=== PATIENT | male | born 1965 | race Caucasian/White ===

== ENCOUNTER 2017-02-04 15:29 | Inpatient (IN) ==
[2017-02-04] MEDS ORDERED: MORPHINE 2 MG/1 ML SYRINGE IV STA (16:47)
[2017-02-04] MEDS ORDERED: SODIUM CHLORIDE 0.9% 1,000 ML IV STA (16:47)
[2017-02-04] MEDS ORDERED: ONDANSETRON 4 MG/2 ML VIAL IV STA (16:48)
[2017-02-04] MEDS ORDERED: ONDANSETRON 4 MG/2 ML VIAL ONE (17:27)
[2017-02-04] MEDS ORDERED: MORPHINE 2 MG/1 ML SYRINGE ONE (17:27)
[2017-02-04 17:35] LABS: Basophils # 0.1 10*3/uL (0.0-0.2); Basophils % 0.4 % (0.0-0.8); Eosinophils # 0.6 10*3/uL (0.0-0.87); Eosinophils % 3.1 % (0.00-10.9); Hematocrit 36.3 VOL% (42.0-52.0); Hemoglobin 12.6 GM/DL (14.0-18.0); Immature Granulocytes % 0.7 %; Immature Granulocytes Absolute 0.13 #; Lymphocytes # 1.6 10*3/uL (1.4-4.0); Lymphocytes % 8.3 % (21.2-54.2); Mean Corpuscular HGB Conc 34.7 GM/DL (32-36); Mean Corpuscular Hemoglobin 32 PG (27-34); Mean Corpuscular Volume 91.4 FL (87-102); Mean Platelet Volume 9.8 FL (9.6-12.0); Monocytes # 1.3 10*3/uL (0.11-0.8); Monocytes % 6.6 % (1.7-12.7); Neutrophils # 15.5 10*3/uL (1.4-7.4); Neutrophils % 80.9 % (38.7-73.9); Platelet Count 240 T/CUMM (130-400); Red Blood Count 3.97 MC/CUMM (3.8-5.5); Red Cell Distribution Width 12.7 % (9.3-17.3); White Blood Count 19.1 T/CUMM (4-12)
[2017-02-04] MEDS ORDERED: diphenhydrAMINE 50 MG/1 ML VIAL IV PRN (17:50)
[2017-02-04] MEDS ORDERED: ONDANSETRON 4 MG/2 ML VIAL IV PRN ×2 (17:50→18:01)
[2017-02-04] MEDS ORDERED: ACETAMINOPHEN 500 MG TABLET PO PRN (17:50)
[2017-02-04] MEDS ORDERED: KETOROLAC 15 MG/1 ML VIAL IV PRN (17:50)
[2017-02-04 17:52] LABS: Calcium 8.7 MG/DL (8.5-10.1); Osmolality,Calculated 272.8 MOS/KG (273-304); Potassium 4.1 MMOL/L (3.5-5.1)
[2017-02-04] MEDS ORDERED: ACETAMINOPHEN 325 MG TABLET PO PRN (18:01)
[2017-02-04] MEDS: LACTATED RINGERS 1,000 ML IV SCH (21:10)
[2017-02-04] MEDS: HYDROmorphone PCA 30 MG/30 ML SYRINGE IV SCH (21:11)
[2017-02-04] MEDS: VANCOMYCIN INJ 1,250 MG in SODIUM CHLORIDE 0.9% 250 ML IV SCH (21:13)
[2017-02-05] MEDS: PIPERACILLIN/TAZOBACTAM 3,375 MG in SODIUM CHLORIDE 0.9% 100 ML IV SCH ×3 (00:26→15:16)
[2017-02-05] MEDS: VANCOMYCIN INJ 1,250 MG in SODIUM CHLORIDE 0.9% 250 ML IV SCH ×2 (07:45→13:01)
[2017-02-05] MEDS ORDERED: LIDOCAINE 1%/EPI INJ 20 ML VIAL ONE (07:53)
[2017-02-05] MEDS ORDERED: PROPOFOL 200 MG/20 ML VIAL IV ONE (08:54)
[2017-02-05] MEDS ORDERED: SEVOFLURANE 1 UNIT/15 MINUTE INH ONE (08:54)
[2017-02-05] MEDS ORDERED: MIDAZOLAM 2 MG/2 ML VIAL ONE (08:54)
[2017-02-05] MEDS ORDERED: fentaNYL 100 MCG/2 ML VIAL ONE (08:55)
[2017-02-05] MEDS ORDERED: DEXAMETHASONE 10 MG/1 ML VIAL ONE (08:55)
[2017-02-05] MEDS ORDERED: ONDANSETRON 4 MG/2 ML VIAL ONE ×2 (08:55→08:57)
[2017-02-05] MEDS ORDERED: HYDROmorphone 2 MG/1 ML VIAL ONE (08:57)
[2017-02-05] MEDS: HYDROmorphone 2 MG/1 ML VIAL IV PRN ×2 (09:00→09:05)
[2017-02-05] MEDS: PANTOPRAZOLE 40 MG TABLET PO SCH (09:00)
[2017-02-05] MEDS ORDERED: ONDANSETRON 4 MG/2 ML VIAL IV PRN (09:01)
[2017-02-05] MEDS: SODIUM HYPOCHLORITE 0.25% IRRIG 473 ML BOTTLE TOP SCH (17:09)
[2017-02-05] MEDS: LACTATED RINGERS 1,000 ML IV SCH (18:01)
[2017-02-05] MEDS: HYDROmorphone PCA 30 MG/30 ML SYRINGE IV SCH (18:01)
[2017-02-06] MEDS: PIPERACILLIN/TAZOBACTAM 3,375 MG in SODIUM CHLORIDE 0.9% 100 ML IV SCH ×2 (00:12→09:34)
[2017-02-06] MEDS: VANCOMYCIN INJ 1,250 MG in SODIUM CHLORIDE 0.9% 250 ML IV SCH (04:08)
[2017-02-06] MEDS: SODIUM HYPOCHLORITE 0.25% IRRIG 473 ML BOTTLE TOP SCH (09:34)
[2017-02-06] MEDS: PANTOPRAZOLE 40 MG TABLET PO SCH (09:34)
[2017-02-06 11:37] VITALS: BP 119/59
== END 2017-02-06 11:20 | disposition home or self-care (01) | DRG 581 ==
LOC: N.ED 15:29 → N.EDINP 17:50 → N.5E 19:06
PROVIDERS: ADMIT Otolaryngology; ATTEND Otolaryngology

== ENCOUNTER 2017-11-14 18:14 | Inpatient (IN) ==
[2017-11-14] MEDS ORDERED: SODIUM CHLORIDE 0.9% 1,000 ML IV STA (19:09)
[2017-11-14] MEDS ORDERED: MORPHINE 4 MG/1 ML VIAL IV STA (19:09)
[2017-11-14 19:14] LABS: Basophils # 0.1 10*3/uL (0.0-0.2); Basophils % 0.4 % (0.0-0.8); Eosinophils # 0.6 10*3/uL (0.0-0.87); Eosinophils % 2.2 % (0.00-10.9); Hematocrit 36.2 VOL% (42.0-52.0); Hemoglobin 12.2 GM/DL (14.0-18.0); Immature Granulocytes % 0.9 %; Immature Granulocytes Absolute 0.23 #; Lymphocytes # 1.9 10*3/uL (1.4-4.0); Lymphocytes % 7.6 % (21.2-54.2); Mean Corpuscular HGB Conc 33.7 GM/DL (32-36); Mean Corpuscular Hemoglobin 32 PG (27-34); Mean Platelet Volume 9.9 FL (9.6-12.0); Monocytes # 1.3 10*3/uL (0.11-0.8); Neutrophils # 21.5 10*3/uL (1.4-7.4); Neutrophils % 83.9 % (38.7-73.9); Platelet Count 280 T/CUMM (130-400); Red Blood Count 3.85 MC/CUMM (3.8-5.5); White Blood Count 25.6 T/CUMM (4-12)
[2017-11-14 19:33] LABS: Albumin 2.9 G/DL (3.4-5.0); Bilirubin,Total 0.7 MG/DL (0.2-1.0); Calcium 8.4 MG/DL (8.5-10.1); Osmolality,Calculated 278.5 MOS/KG (273-304); Potassium 3.8 MMOL/L (3.5-5.1); Total Protein 6.9 G/DL (6.4-8.3)
[2017-11-14 20:25] LABS: Band Neutrophils 3 % (0-10); Eosinophils 2 % (0-10); Lymphocytes 7 % (20-55); Segmented Neutrophils 80 % (50-85); Total Cells Counted 100
[2017-11-14 20:27] LABS: Macrocytosis Slight; Platelet Estimate Adequate
[2017-11-14] MEDS ORDERED: ACETAMINOPHEN 325 MG TABLET PO PRN (20:28)
[2017-11-14] MEDS ORDERED: PROMETHAZINE 25 MG/1 ML VIAL IM PRN (20:28)
[2017-11-14] MEDS ORDERED: PIPERACILLIN/TAZOBACTAM 2,250 MG in SODIUM CHLORIDE 0.9% 100 ML IV STA (20:32)
[2017-11-14] MEDS ORDERED: PIPERACILLIN/TAZOBACTAM 3,375 MG in SODIUM CHLORIDE 0.9% 100 ML IV STA (20:37)
[2017-11-14] MEDS: DEXTROSE 5% NACL 0.45% 1,000 ML IV SCH (20:50)
[2017-11-14] MEDS: ENOXAPARIN 40 MG/0.4 ML SYRINGE SUBCUT SCH (20:50)
[2017-11-15] MEDS: MORPHINE 4 MG/1 ML VIAL IV PRN ×4 (00:07→12:58)
[2017-11-15] MEDS: PIPERACILLIN/TAZOBACTAM 3,375 MG in SODIUM CHLORIDE 0.9% 100 ML IV SCH ×3 (04:52→23:35)
[2017-11-15] MEDS: DEXTROSE 5% NACL 0.45% 1,000 ML IV SCH (04:52)
[2017-11-15 06:58] LABS: Basophils # 0.1 10*3/uL (0.0-0.2); Basophils % 0.3 % (0.0-0.8); Eosinophils # 0.9 10*3/uL (0.0-0.87); Eosinophils % 3.9 % (0.00-10.9); Hematocrit 33.8 VOL% (42.0-52.0); Hemoglobin 11.6 GM/DL (14.0-18.0); Immature Granulocytes % 0.7 %; Immature Granulocytes Absolute 0.16 #; Lymphocytes # 2.1 10*3/uL (1.4-4.0); Lymphocytes % 9.2 % (21.2-54.2); Mean Corpuscular HGB Conc 34.3 GM/DL (32-36); Mean Corpuscular Hemoglobin 32 PG (27-34); Mean Corpuscular Volume 92.3 FL (87-102); Monocytes # 1.2 10*3/uL (0.11-0.8); Monocytes % 5.3 % (1.7-12.7); Neutrophils # 18.4 10*3/uL (1.4-7.4); Neutrophils % 80.6 % (38.7-73.9); Platelet Count 261 T/CUMM (130-400); Red Blood Count 3.66 MC/CUMM (3.8-5.5); Red Cell Distribution Width 13.2 % (9.3-17.3); White Blood Count 22.8 T/CUMM (4-12)
[2017-11-15 07:17] LABS: Calcium 8.3 MG/DL (8.5-10.1); Osmolality,Calculated 280.1 MOS/KG (273-304); Potassium 3.7 MMOL/L (3.5-5.1)
[2017-11-15 07:21] LABS: Band Neutrophils 16 % (0-10); Eosinophils 8 % (0-10); Lymphocytes 4 % (20-55); Platelet Estimate Normal; Segmented Neutrophils 65 % (50-85); Total Cells Counted 100
[2017-11-15 07:22] LABS: Macrocytosis 1+
[2017-11-15] MEDS: TOBRAMYCIN INJ 120 MG in SODIUM CHLORIDE 0.9% 100 ML IV SCH ×2 (09:15→21:29)
[2017-11-15] MEDS: NICOTINE 21 MG/24 HR PATCH TRANSDERM PRN (10:53)
[2017-11-15] MEDS ORDERED: ROPIVACAINE 0.5% 30 ML VIAL ONE (13:16)
[2017-11-15] MEDS ORDERED: KETOROLAC 30 MG/1 ML VIAL IV ONE (14:07)
[2017-11-15] MEDS ORDERED: oxyCODONE/ACETAMINOPHEN 5-325 MG TABLET PO PRN (14:12)
[2017-11-15] MEDS ORDERED: ACETAMINOPHEN 1,000 MG/100 ML VIAL IV ONE (14:21)
[2017-11-15] MEDS ORDERED: SEVOFLURANE 1 UNIT/15 MINUTE INH ONE (14:21)
[2017-11-15] MEDS ORDERED: ONDANSETRON 4 MG/2 ML VIAL ONE (14:21)
[2017-11-15] MEDS ORDERED: PROPOFOL 200 MG/20 ML VIAL IV ONE (14:21)
[2017-11-15] MEDS ORDERED: MORPHINE 10 MG/1 ML VIAL ONE (14:34)
[2017-11-15] MEDS: MORPHINE 10 MG/1 ML VIAL IV PRN ×2 (14:36→14:41)
[2017-11-15] MEDS: oxyCODONE/ACETAMINOPHEN 5-325 MG TABLET PO PRN ×2 (16:48→21:22)
[2017-11-15 22:31] LABS: Barbiturates Screen,Urine Negative (Negative); Benzodiazepines Screen,Urine Negative (Negative); Cannabinoid Screen,Urine Positive (Negative); Opiate Screen,Urine Positive (Negative); Phencyclidine Screen,Urine Negative (Negative)
[2017-11-15 22:32] LABS: Apearance,Urine CLEAR (Clear); Bilirubin,Urine Negative (Negative); Blood, Urine Negative (Negative); Glucose,Urine (UA) Negative (Negative); Ketones,Urine Negative (Negative); Nitrite,Urine Negative (Negative); Protein,Urine Negative; Squamous Epithelial Cell,Urine Occasional /HPF (0-10); Urine Color Yellow (Yellow); Urine Specific Gravity 1.009 (1.001-1.035)
[2017-11-15] MEDS: MEPERIDINE 50 MG/1 ML VIAL IM PRN (23:36)
[2017-11-16] MEDS: DEXTROSE 5% NACL 0.45% 1,000 ML IV SCH ×2 (04:13→04:14)
[2017-11-16] MEDS: MEPERIDINE 50 MG/1 ML VIAL IM PRN ×4 (04:15→20:55)
[2017-11-16] MEDS: PIPERACILLIN/TAZOBACTAM 3,375 MG in SODIUM CHLORIDE 0.9% 100 ML IV SCH ×3 (06:01→22:29)
[2017-11-16] MEDS: ONDANSETRON 4 MG/2 ML VIAL IV PRN ×3 (08:25→20:56)
[2017-11-16] MEDS: TOBRAMYCIN INJ 120 MG in SODIUM CHLORIDE 0.9% 100 ML IV SCH (11:49)
[2017-11-16] MEDS: NICOTINE 21 MG/24 HR PATCH TRANSDERM PRN (11:54)
[2017-11-16] MEDS: oxyCODONE/ACETAMINOPHEN 5-325 MG TABLET PO PRN (14:11)
[2017-11-17] MEDS: ONDANSETRON 4 MG/2 ML VIAL IV PRN ×2 (04:15→10:24)
[2017-11-17] MEDS: MEPERIDINE 50 MG/1 ML VIAL IM PRN ×2 (04:16→10:22)
[2017-11-17 06:28] LABS: Basophils # 0.1 10*3/uL (0.0-0.2); Basophils % 0.7 % (0.0-0.8); Eosinophils # 0.6 10*3/uL (0.0-0.87); Eosinophils % 6.1 % (0.00-10.9); Hematocrit 34.9 VOL% (42.0-52.0); Hemoglobin 11.7 GM/DL (14.0-18.0); Immature Granulocytes % 0.5 %; Immature Granulocytes Absolute 0.05 #; Lymphocytes # 2.6 10*3/uL (1.4-4.0); Lymphocytes % 24.9 % (21.2-54.2); Mean Corpuscular HGB Conc 33.5 GM/DL (32-36); Mean Corpuscular Hemoglobin 31 PG (27-34); Mean Corpuscular Volume 92.8 FL (87-102); Mean Platelet Volume 9.4 FL (9.6-12.0); Monocytes # 0.8 10*3/uL (0.11-0.8); Monocytes % 7.5 % (1.7-12.7); Neutrophils # 6.2 10*3/uL (1.4-7.4); Neutrophils % 60.3 % (38.7-73.9); Platelet Count 304 T/CUMM (130-400); Red Blood Count 3.76 MC/CUMM (3.8-5.5); Red Cell Distribution Width 12.9 % (9.3-17.3); White Blood Count 10.3 T/CUMM (4-12)
[2017-11-17] MEDS: PIPERACILLIN/TAZOBACTAM 3,375 MG in SODIUM CHLORIDE 0.9% 100 ML IV SCH ×2 (06:51→14:41)
[2017-11-17 06:56] LABS: Calcium 8.5 MG/DL (8.5-10.1); Osmolality,Calculated 280.1 MOS/KG (273-304); Potassium 3.9 MMOL/L (3.5-5.1)
[2017-11-17] MEDS ORDERED: BISACODYL 5 MG TABLET PO ONE (10:45)
[2017-11-17] MEDS: NICOTINE 21 MG/24 HR PATCH TRANSDERM PRN (11:49)
[2017-11-17] MEDS: TOBRAMYCIN INJ 120 MG in SODIUM CHLORIDE 0.9% 100 ML IV SCH (11:52)
[2017-11-17] MEDS: oxyCODONE/ACETAMINOPHEN 5-325 MG TABLET PO PRN ×3 (14:40→22:14)
[2017-11-17] MEDS: GABAPENTIN 600 MG TABLET PO SCH ×2 (14:40→21:13)
[2017-11-17] MEDS ORDERED: BISACODYL 10 MG SUPP RECTAL ONE (20:00)
[2017-11-17] MEDS ORDERED: METHOCARBAMOL 750 MG TABLET PO SCH (21:00)
[2017-11-17] MEDS: SULFAMETHOX/TRIMETHOPRIM 800-160 MG TABLET PO SCH (21:13)
[2017-11-17] MEDS: ENOXAPARIN 40 MG/0.4 ML SYRINGE SUBCUT SCH (21:14)
[2017-11-18] MEDS: oxyCODONE/ACETAMINOPHEN 5-325 MG TABLET PO PRN ×3 (02:30→11:14)
[2017-11-18] MEDS: SULFAMETHOX/TRIMETHOPRIM 800-160 MG TABLET PO SCH (09:24)
[2017-11-18] MEDS: GABAPENTIN 600 MG TABLET PO SCH (09:24)
[2017-11-18] MEDS ORDERED: ONDANSETRON 4 MG TABLET PO PRN (10:01)
[2017-11-18 13:37] VITALS: BP 117/65
== END 2017-11-18 13:38 | disposition home or self-care (01) | DRG 581 ==
LOC: N.ED 18:14 → N.EDINP 18:14 → N.5E 21:37
PROVIDERS: ADMIT Urology; ATTEND Urology

== ENCOUNTER 2019-03-22 09:32 | Inpatient (IN) ==
[2019-03-22] MEDS ORDERED: FAMOTIDINE 20 MG TABLET PO PRN (10:19)
[2019-03-22] MEDS ORDERED: MAGNESIUM HYDROXIDE SUSP 30 ML UDCUP PO PRN (10:19)
[2019-03-22] MEDS ORDERED: ALUMINUM/MAGNES/SIMETH MAX STR 30 ML UDCUP PO PRN (10:19)
[2019-03-22] MEDS ORDERED: ONDANSETRON 4 MG/2 ML VIAL IV PRN (10:19)
[2019-03-22] MEDS ORDERED: IBUPROFEN 800 MG TABLET PO PRN (10:19)
[2019-03-22 11:27] LABS: Basophils # 0.1 10*3/uL (0.0-0.2); Basophils % 0.6 % (0.0-0.8); Eosinophils # 0.4 10*3/uL (0.0-0.87); Eosinophils % 3.8 % (0.00-10.9); Hematocrit 40.6 VOL% (42.0-52.0); Hemoglobin 13.5 GM/DL (14.0-18.0); Immature Granulocytes % 0.3 %; Immature Granulocytes Absolute 0.03 #; Lymphocytes # 2.5 10*3/uL (1.4-4.0); Lymphocytes % 22.6 % (21.2-54.2); Mean Corpuscular HGB Conc 33.3 GM/DL (32-36); Mean Platelet Volume 9.4 FL (9.6-12.0); Monocytes % 5.9 % (1.7-12.7); Neutrophils % 66.8 % (38.7-73.9); Platelet Count 310 T/CUMM (130-400); Red Blood Count 4.23 MC/CUMM (3.8-5.5); Red Cell Distribution Width 12.3 % (9.3-17.3); White Blood Count 10.9 T/CUMM (4-12)
[2019-03-22 11:39] LABS: INR 0.9; Partial Thromboplastin Time 27.6 SECS (20.8-36.0)
[2019-03-22 11:47] LABS: Albumin 3.5 G/DL (3.4-5.0); Osmolality,Calculated 276.7 MOS/KG (273-304); Total Protein 7.3 G/DL (6.4-8.3)
[2019-03-22] MEDS ORDERED: VANCOMYCIN INJ 1,750 MG in SODIUM CHLORIDE 0.9% 500 ML IV ONE (12:00)
[2019-03-22] MEDS: MORPHINE 4 MG/1 ML VIAL IV PRN ×3 (16:27→23:23)
[2019-03-22] MEDS ORDERED: CHLORHEXIDINE 4% SOLN 118 ML BOTTLE TOP ONE (17:36)
[2019-03-22 18:57] LABS: Apearance,Urine CLEAR (Clear); Bilirubin,Urine Negative (Negative); Blood, Urine Negative (Negative); Glucose,Urine (UA) Negative (Negative); Ketones,Urine Negative (Negative); Nitrite,Urine Negative (Negative); Protein,Urine Negative; RBC,Urine <1 /HPF (0-4); Squamous Epithelial Cell,Urine Occasional /HPF (0-10); Urine Color Yellow (Yellow); Urine Specific Gravity 1.016 (1.001-1.035); WBC,Urine <1 /HPF (0-6)
[2019-03-22] MEDS: DOCUSATE SODIUM 100 MG CAPSULE PO SCH ×2 (20:30→20:33)
[2019-03-22] MEDS: LACTATED RINGERS 1,000 ML IV SCH (23:01)
[2019-03-22] MEDS: VANCOMYCIN INJ 1,250 MG in SODIUM CHLORIDE 0.9% 250 ML IV SCH (23:02)
[2019-03-23] MEDS: MORPHINE 4 MG/1 ML VIAL IV PRN ×2 (04:37→12:06)
[2019-03-23] MEDS: DOCUSATE SODIUM 100 MG CAPSULE PO SCH ×2 (08:16→21:05)
[2019-03-23] MEDS ORDERED: BACITRACIN OINT 0.9 GM PACK TOP ONE (10:01)
[2019-03-23] MEDS ORDERED: ONDANSETRON 4 MG/2 ML VIAL ONE (10:30)
[2019-03-23] MEDS ORDERED: MIDAZOLAM 2 MG/2 ML VIAL ONE (10:30)
[2019-03-23] MEDS ORDERED: PROPOFOL 200 MG/20 ML VIAL IV ONE (10:30)
[2019-03-23] MEDS ORDERED: fentaNYL 100 MCG/2 ML VIAL ONE (10:30)
[2019-03-23] MEDS ORDERED: LIDOCAINE 2% 5 ML VIAL ONE (10:30)
[2019-03-23] MEDS ORDERED: SEVOFLURANE 1 UNIT/15 MINUTE INH ONE (10:30)
[2019-03-23] MEDS ORDERED: MEPERIDINE 25 MG/1 ML VIAL IV PRN (10:45)
[2019-03-23] MEDS ORDERED: ONDANSETRON 4 MG/2 ML VIAL IV PRN (10:45)
[2019-03-23] MEDS: HYDROmorphone 2 MG/1 ML VIAL IV PRN ×5 (10:50→23:33)
[2019-03-23] MEDS: VANCOMYCIN INJ 1,250 MG in SODIUM CHLORIDE 0.9% 250 ML IV SCH ×2 (12:04→23:35)
[2019-03-23] MEDS: LACTATED RINGERS 1,000 ML IV SCH (12:10)
[2019-03-23] MEDS: MUPIROCIN 2% OINT 22 GM TUBE TOP SCH (21:02)
[2019-03-23] MEDS: ZALEPLON 5 MG CAPSULE PO PRN (23:38)
[2019-03-24 04:55] LABS: Basophils # 0.1 10*3/uL (0.0-0.2); Basophils % 0.7 % (0.0-0.8); Eosinophils # 0.8 10*3/uL (0.0-0.87); Eosinophils % 8.2 % (0.00-10.9); Hematocrit 36.9 VOL% (42.0-52.0); Hemoglobin 12.4 GM/DL (14.0-18.0); Immature Granulocytes % 0.2 %; Immature Granulocytes Absolute 0.02 #; Lymphocytes # 3.7 10*3/uL (1.4-4.0); Lymphocytes % 37.1 % (21.2-54.2); Mean Corpuscular HGB Conc 33.6 GM/DL (32-36); Mean Corpuscular Volume 94.9 FL (87-102); Mean Platelet Volume 9.3 FL (9.6-12.0); Monocytes % 6.1 % (1.7-12.7); Neutrophils % 47.7 % (38.7-73.9); Platelet Count 264 T/CUMM (130-400); Red Blood Count 3.89 MC/CUMM (3.8-5.5); Red Cell Distribution Width 12.1 % (9.3-17.3); White Blood Count 9.9 T/CUMM (4-12)
[2019-03-24 05:31] LABS: Calcium 8.3 MG/DL (8.5-10.1); Osmolality,Calculated 279.3 MOS/KG (273-304)
[2019-03-24] MEDS: HYDROmorphone 2 MG/1 ML VIAL IV PRN ×4 (08:52→23:49)
[2019-03-24] MEDS: DOCUSATE SODIUM 100 MG CAPSULE PO SCH ×2 (08:52→20:12)
[2019-03-24] MEDS: MUPIROCIN 2% OINT 22 GM TUBE TOP SCH ×2 (08:52→20:12)
[2019-03-24] MEDS: VANCOMYCIN INJ 1,250 MG in SODIUM CHLORIDE 0.9% 250 ML IV SCH (11:01)
[2019-03-24] MEDS: ZALEPLON 5 MG CAPSULE PO PRN (23:49)
[2019-03-25] MEDS: VANCOMYCIN INJ 1,250 MG in SODIUM CHLORIDE 0.9% 250 ML IV SCH ×2 (00:56→13:47)
[2019-03-25] MEDS ORDERED: CHLORHEXIDINE 4% SOLN 118 ML BOTTLE TOP ONE (09:12)
[2019-03-25] MEDS: HYDROmorphone 2 MG/1 ML VIAL IV PRN (09:30)
[2019-03-25] MEDS: DOCUSATE SODIUM 100 MG CAPSULE PO SCH (09:35)
[2019-03-25] MEDS: MUPIROCIN 2% OINT 22 GM TUBE TOP SCH (10:20)
[2019-03-25 11:12] VITALS: BP 131/68
== END 2019-03-25 14:15 | disposition home or self-care (01) | DRG 581 ==
LOC: N.3E 10:25
PROVIDERS: ADMIT Orthopaedic Surgery; ATTEND Orthopaedic Surgery